=== PATIENT | male | born 1970 | race Asian ===

== ENCOUNTER 2020-03-28 20:06 | Emergency (ER) | payer BC ==
[~2020-03-28] VITALS: Ht 182.9 cm; Wt 90.7 kg
[2020-03-28 20:10] VITALS: BP_SYST 148
--- NOTE | 2020-03-28 20:10 | NUR ---
Patient triaged in the tent and placed in tent. VSS and patient appears in no acute distress at this time. Accompanied by , awaiting available bed, and MD notified of need for MSE.
--- NOTE | 2020-03-28 20:11 | NUR ---
ER examining patient.
[2020-03-28] MEDS ORDERED: predniSONE 20 MG TABLET PO ONE (20:30)
--- NOTE | 2020-03-28 20:47 | NUR ---
Patient given written and verbal discharge instructions and verbalizes understanding. ER MD discussed with patient the results and treatment provided. Patient in stable condition. ID arm band removed. Rx of Prednisone and Acyclovir given. Patient educated on pain management and to follow up with PMD. Pain Scale 1/10. Opportunity for questions provided and answered. Medication side effect fact sheet provided.
[2020-03-28 20:49] VITALS: BP_SYST 138
== END 2020-03-28 20:49 | disposition home or self-care (01) ==
LOC: SED 20:06
DX: G51.0 Bell's palsy (principal); Z88.6 Allergy status to analgesic agent; Z91.018 Allergy to other foods
CPT/HCPCS: 99283; J7512